=== PATIENT | male | born 1965 | race Caucasian/White ===

== ENCOUNTER 2017-11-24 00:44 | Emergency (ER) | payer MEDICARE, OTHER ==
[~2017-11-24] VITALS: Ht 165.1 cm; Wt 120.5 kg
[2017-11-24 00:57] LABS: GLUCOSE,POINT OF CARE 308 MG/DL (70-110)
[2017-11-24] MEDS ORDERED: INSU100I3 SQ (01:05)
[2017-11-24] MEDS ORDERED: ATOR40TA71 PO (01:05)
[2017-11-24] MEDS ORDERED: CYCL10TA7 PO (01:05)
[2017-11-24] MEDS ORDERED: INSLAN SQ (01:05)
[2017-11-24] MEDS ORDERED: LOSA1TAB37 PO (01:05)
[2017-11-24] MEDS ORDERED: GABA-531 PO (01:05)
[2017-11-24 01:31] LABS: BASOPHILS % (AUTO) 0.7 % (0.0-2.0); EOSINOPHILS % (AUTO) 0.2 % (1.0-6.0); HEMATOCRIT 38.7 % (41-53); HEMOGLOBIN 13.2 g/dL (13.5-17.5); LYMPHOCYTES # (AUTO) 1.6 K/uL (1.0-4.8); LYMPHOCYTES % (AUTO) 25.5 % (22.0-44.0); MEAN CORPUSCULAR HEMOGLOBIN 30.3 pg (26.0-34.0); MEAN CORPUSCULAR HGB CONC 34.2 G/dL (31.0-37.0); MEAN CORPUSCULAR VOLUME 89 fL (80-100); MONOCYTES # (AUTO) 0.4 K/uL (0.1-1.0); NEUTROPHILS # (AUTO) 4.3 K/uL (1.8-7.7); NEUTROPHILS % (AUTO) 67.6 % (40.0-70.0); PLATELET COUNT (AUTO) 227 K/uL (150-450); RED BLOOD CELL COUNT(AUTO) 4.37 MIL/uL (4.50-5.90); RED CELL DISTRIBUTION WIDTH 14.7 % (11.5-14.5)
[2017-11-24 01:40] LABS: ANION GAP 15 mmol/L (8-16); CALCIUM, TOTAL 8.3 mg/dL (8.8-10.5); CARBON DIOXIDE 23 mmol/L (22-29); CHLORIDE 104 mmol/L (98-107); CREATININE 0.94 mg/dL (0.60-1.30); GLOMERULAR FILTR. RATE CALC > 60 mL/min (>60); GLUCOSE,RANDOM 303 mg/dL (70-110); POTASSIUM 3.6 mmol/L (3.5-5.1); SODIUM SERUM 142 mmol/L (136-145); UREA NITROGEN, BLOOD 11 mg/dL (7-18)
[2017-11-24 01:45] LABS: ALANINE AMINOTRANSFERASE 39 U/L (12-78); ALBUMIN 3.5 g/dL (3.4-5.0); ALKALINE PHOSPHATASE 129 U/L (46-116); ASPARTATE AMINOTRANSFERASE 17 U/L (15-37); BILIRUBIN,TOTAL 0.2 mg/dL (0.1-1.0); TOTAL PROTEIN, SERUM 7.2 g/dL (6.4-8.2)
[2017-11-24 01:53] LABS: PLATELET MORPHOLOGY COMMENT GIANT PLTS PRESENT
[2017-11-24 02:21] VITALS: BP 138/81
[2017-11-24 03:12] LABS: AMPHET/METH SCREEN,URINE NEGATIVE (NEGATIVE); BARBITURATE SCREEN, URINE NEGATIVE (NEGATIVE); BENZODIAZEPINES SCREEN,URINE NEGATIVE (NEGATIVE); CANNABINOID SCREEN,URINE NEGATIVE (NEGATIVE); COCAINE SCREEN,URINE NEGATIVE (NEGATIVE); METHADONE SCREEN, URINE NEGATIVE (NEGATIVE); OPIATE SCREEN,URINE NEGATIVE (NEGATIVE)
[2017-11-24 03:25] LABS: PHENCYCLIDINE SCREEN,URINE NEGATIVE (NEGATIVE)
== END 2017-11-24 02:48 | disposition home or self-care (01) ==
LOC: EMS 00:47
DX: T75.4XXA Electrocution, initial encounter (principal); E11.65 Type 2 diabetes mellitus with hyperglycemia; R45.851 Suicidal ideations; F10.129 Alcohol abuse with intoxication, unspecified; E11.9 Type 2 diabetes mellitus without complications; I10 Essential (primary) hypertension; E66.9 Obesity, unspecified; Z02.89 Encounter for other administrative examinations; Z68.41 Body mass index [BMI] 40.0-44.9, adult; Z79.4 Long term (current) use of insulin; Y92.148 Other place in prison as the place of occurrence of the external cause; Y90.7 Blood alcohol level of 200-239 mg/100 ml
CPT/HCPCS: 36415; 80053; 80307; 82962; 85025; 93005; 99285; G0480